=== PATIENT | female | born 1990 | race Caucasian/White ===

== ENCOUNTER 2020-02-23 06:11 | Inpatient (IN) ==
[2020-02-23] MEDS ORDERED: MEPERIDINE 50 MG/1 ML VIAL IV PRN (06:32)
[2020-02-23] MEDS ORDERED: BUTORPHANOL 2 MG/ML VIAL IV PRN (06:32)
[2020-02-23] MEDS ORDERED: LACTATED RINGERS 500 ML IV PRN (06:32)
[2020-02-23 07:11] LABS: Basophils # 0.1 10*3/uL (0.0-0.2); Basophils % 0.5 % (0.0-0.8); Eosinophils # 0.1 10*3/uL (0.0-0.87); Eosinophils % 0.5 % (0.00-10.9); Hematocrit 34.9 VOL% (35.7-47.0); Hemoglobin 10.6 GM/DL (12.0-16.0); Immature Granulocytes Absolute 0.09 #; Lymphocytes # 1.3 10*3/uL (1.4-4.0); Lymphocytes % 14.3 % (21.3-54.2); Mean Corpuscular HGB Conc 30.4 GM/DL (32-36); Mean Corpuscular Volume 78.3 FL (87-102); Mean Platelet Volume 11.4 FL (9.6-12.0); Neutrophils % 75.7 % (38.7-73.9); Platelet Count 237 T/CUMM (130-400); Red Blood Count 4.46 MC/CUMM (3.8-5.5); Red Cell Distribution Width 15.8 % (9.3-17.3); White Blood Count 9.4 T/CUMM (4-12)
[2020-02-23] MEDS: LACTATED RINGERS 1,000 ML IV SCH ×3 (07:23→21:28)
[2020-02-23] MEDS ORDERED: ACETAMINOPHEN 500 MG TABLET PO PRN (12:28)
[2020-02-23] MEDS: ONDANSETRON 4 MG/2 ML VIAL IV PRN (17:09)
[2020-02-23] MEDS ORDERED: NALOXONE 0.4 MG/ML VIAL IV PRN (18:33)
[2020-02-23] MEDS ORDERED: CITRIC ACID/SODIUM CITRATE 30 ML UDCUP PO ONE (18:33)
[2020-02-23] MEDS ORDERED: hydrOXYzine HCL 25 MG/1 ML VIAL IM PRN (18:33)
[2020-02-23] MEDS ORDERED: ONDANSETRON 4 MG/2 ML VIAL IV ONE (18:33)
[2020-02-23] MEDS ORDERED: FAMOTIDINE 20 MG/2 ML VIAL IV ONE (18:33)
[2020-02-23] MEDS ORDERED: PROMETHAZINE 25 MG/1 ML VIAL IM ONE (18:33)
[2020-02-23] MEDS ORDERED: ePHEDrine 50 MG/ML AMP IV PRN (18:33)
[2020-02-23] MEDS ORDERED: diphenhydrAMINE 50 MG/1 ML VIAL IV PRN ×2 (18:33)
[2020-02-23] MEDS: fentaNYL 2 MCG/ROPIV 0.2% EPID 100 ML EPIDURAL SCH ×2 (18:49→19:13)
[2020-02-23] MEDS ORDERED: OXYTOCIN/LR 20 UNIT/1,000 ML BAG IV ONE (21:29)
[2020-02-23] MEDS ORDERED: OXYTOCIN/LR 20 UNIT/1,000 ML BAG IV SCH (22:00)
[2020-02-24 00:55] LABS: Apearance,Urine CLEAR (Clear); Bilirubin,Urine Negative (Negative); Blood, Urine Negative (Negative); Glucose,Urine (UA) Negative (Negative); Ketones,Urine 5 mg/dL (Negative); Mucus,Urine Occasional /LPF (Occasional); Nitrite,Urine Negative (Negative); Protein,Urine Negative; RBC,Urine <1 /HPF (0-4); Urine Color Straw (Yellow); Urine Specific Gravity 1.011 (1.001-1.035); Urine Urobilinogen < 2.0 EU/DL (0.2-1.0); WBC,Urine <1 /HPF (0-6)
[2020-02-24] MEDS ORDERED: miSOPROStoL 200 MCG TABLET ONE (03:34)
[2020-02-24] MEDS ORDERED: METHYLERGONOVINE 0.2 MG/1 ML AMP ONE ×2 (03:35→09:42)
[2020-02-24] MEDS ORDERED: CARBOPROST TROMETHAMINE 250 MCG/ML AMP IM ONE ×2 (03:35→13:30)
[2020-02-24] MEDS ORDERED: ceFAZolin 3,000 MG in SYRINGE 1 EACH IV ONE (08:56)
[2020-02-24] MEDS ORDERED: ceFAZolin 1,000 MG VIAL ONE (08:59)
[2020-02-24] MEDS ORDERED: ACETAMINOPHEN 325 MG TABLET PO PRN (10:09)
[2020-02-24] MEDS ORDERED: ONDANSETRON 4 MG/2 ML VIAL IV PRN (10:09)
[2020-02-24] MEDS ORDERED: OXYTOCIN/LR 20 UNIT/1,000 ML BAG IV ONE (10:09)
[2020-02-24] MEDS ORDERED: RHO(D) IMMUNE GLOBULIN 300 MCG SYRINGE IM ONE (10:09)
[2020-02-24] MEDS ORDERED: ceFAZolin 1,000 MG in SYRINGE 1 EACH IV SCH (10:30)
[2020-02-24] MEDS ORDERED: LACTATED RINGERS 1,000 ML IV SCH (10:30)
[2020-02-24] MEDS: IBUPROFEN 800 MG TABLET PO PRN ×2 (11:00→20:20)
[2020-02-24] MEDS ORDERED: MORPHINE 10 MG/10 ML VIAL ONE (11:36)
[2020-02-24] MEDS ORDERED: ONDANSETRON 4 MG/2 ML VIAL ONE ×2 (11:36)
[2020-02-24] MEDS ORDERED: LIDOCAINE MPF 2% /EPI 20 ML VIAL ONE (11:36)
[2020-02-24] MEDS ORDERED: propofoL 200 MG/20 ML VIAL IV ONE (11:36)
[2020-02-24] MEDS ORDERED: PHENYLEPHRINE 1 MG/10 ML SYRINGE IV ONE (11:37)
[2020-02-24] MEDS ORDERED: LACTATED RINGERS 1,000 ML IV ONE (11:37)
[2020-02-24] MEDS ORDERED: METHYLERGONOVINE 0.2 MG/1 ML AMP IM ONE (13:14)
[2020-02-24] MEDS: LACTATED RINGERS 1,000 ML IV SCH ×2 (13:34→21:55)
[2020-02-24] MEDS: ONDANSETRON 4 MG/2 ML VIAL IV PRN (13:50)
[2020-02-24] MEDS ORDERED: SODIUM CHLORIDE 0.9% 50 ML IV ONE (17:10)
[2020-02-24] MEDS: ceFAZolin 1,000 MG in SYRINGE 1 EACH IV SCH (17:16)
[2020-02-24 17:17] LABS: Basophils % 0.2 % (0.0-0.8); Hematocrit 29.2 VOL% (35.7-47.0); Hemoglobin 8.8 GM/DL (12.0-16.0); Immature Granulocytes % 0.7 %; Immature Granulocytes Absolute 0.11 #; Lymphocytes # 0.7 10*3/uL (1.4-4.0); Lymphocytes % 4.5 % (21.3-54.2); Mean Corpuscular HGB Conc 30.1 GM/DL (32-36); Mean Corpuscular Volume 78.9 FL (87-102); Monocytes % 6.3 % (1.7-12.7); Neutrophils % 88.3 % (38.7-73.9); Platelet Count 195 T/CUMM (130-400); White Blood Count 15.7 T/CUMM (4-12)
[2020-02-24 18:01] LABS: Band Neutrophils 2 % (0-10); Hypochromasia Slight; Lymphocytes 4 % (20-55); Microcytosis 1+; Platelet Estimate Normal; Segmented Neutrophils 93 % (50-85); Total Cells Counted 100
[2020-02-24] MEDS: DOCUSATE SODIUM 100 MG CAPSULE PO SCH (20:20)
[2020-02-25] MEDS: ceFAZolin 1,000 MG in SYRINGE 1 EACH IV SCH (01:11)
[2020-02-25] MEDS: IBUPROFEN 800 MG TABLET PO PRN ×2 (04:39→15:40)
[2020-02-25 04:59] LABS: Basophils % 0.3 % (0.0-0.8); Eosinophils # 0.1 10*3/uL (0.0-0.87); Eosinophils % 0.6 % (0.00-10.9); Hematocrit 24.3 VOL% (35.7-47.0); Hemoglobin 7.4 GM/DL (12.0-16.0); Immature Granulocytes % 0.8 %; Immature Granulocytes Absolute 0.08 #; Lymphocytes # 1.1 10*3/uL (1.4-4.0); Lymphocytes % 10.7 % (21.3-54.2); Mean Corpuscular HGB Conc 30.5 GM/DL (32-36); Mean Corpuscular Volume 79.4 FL (87-102); Mean Platelet Volume 10.7 FL (9.6-12.0); Monocytes % 7.8 % (1.7-12.7); Neutrophils % 79.8 % (38.7-73.9); Platelet Count 161 T/CUMM (130-400); Red Blood Count 3.06 MC/CUMM (3.8-5.5); Red Cell Distribution Width 15.9 % (9.3-17.3); White Blood Count 10.2 T/CUMM (4-12)
[2020-02-25] MEDS: MULTIVITAMIN (PRENATAL) TABLET PO SCH (09:23)
[2020-02-25] MEDS: DOCUSATE SODIUM 100 MG CAPSULE PO SCH ×3 (09:23→20:07)
[2020-02-25] MEDS: PANTOPRAZOLE 40 MG TABLET PO SCH (11:00)
[2020-02-25] MEDS: oxyCODONE/ACETAMINOPHEN 5-325 MG TABLET PO PRN (16:45)
[2020-02-25] MEDS ORDERED: BISACODYL 10 MG SUPP RECTAL PRN (19:45)
[2020-02-25] MEDS: MAGNESIUM HYDROXIDE SUSP 30 ML UDCUP PO PRN (19:53)
[2020-02-25] MEDS: SIMETHICONE CHEW 80 MG TABLET PO PRN (19:53)
[2020-02-26] MEDS: FERROUS SULFATE 325 MG TABLET PO SCH ×4 (00:11→21:40)
[2020-02-26] MEDS: oxyCODONE/ACETAMINOPHEN 5-325 MG TABLET PO PRN ×4 (00:30→23:28)
[2020-02-26] MEDS: IBUPROFEN 800 MG TABLET PO PRN ×3 (03:01→23:29)
[2020-02-26] MEDS ORDERED: MAGNESIUM CITRATE 300 ML BOTTLE PO ONE (06:18)
[2020-02-26 07:05] LABS: Basophils % 0.3 % (0.0-0.8); Eosinophils # 0.1 10*3/uL (0.0-0.87); Eosinophils % 0.7 % (0.00-10.9); Hematocrit 23.7 VOL% (35.7-47.0); Hemoglobin 7.1 GM/DL (12.0-16.0); Immature Granulocytes % 2.5 %; Immature Granulocytes Absolute 0.29 #; Lymphocytes # 1.6 10*3/uL (1.4-4.0); Lymphocytes % 13.4 % (21.3-54.2); Mean Corpuscular Volume 79.5 FL (87-102); Mean Platelet Volume 11.2 FL (9.6-12.0); Monocytes % 7.8 % (1.7-12.7); Neutrophils % 75.3 % (38.7-73.9); Platelet Count 205 T/CUMM (130-400); Red Blood Count 2.98 MC/CUMM (3.8-5.5); Red Cell Distribution Width 16.3 % (9.3-17.3); White Blood Count 11.5 T/CUMM (4-12)
[2020-02-26] MEDS: PANTOPRAZOLE 40 MG TABLET PO SCH (10:27)
[2020-02-26] MEDS: DOCUSATE SODIUM 100 MG CAPSULE PO SCH ×3 (10:28→21:40)
[2020-02-26] MEDS: MULTIVITAMIN (PRENATAL) TABLET PO SCH (10:28)
[2020-02-27] MEDS: IBUPROFEN 800 MG TABLET PO PRN (09:30)
[2020-02-27] MEDS: PANTOPRAZOLE 40 MG TABLET PO SCH (09:32)
[2020-02-27] MEDS: DOCUSATE SODIUM 100 MG CAPSULE PO SCH (09:32)
[2020-02-27] MEDS: FERROUS SULFATE 325 MG TABLET PO SCH (09:32)
[2020-02-27] MEDS: MULTIVITAMIN (PRENATAL) TABLET PO SCH (09:32)
[2020-02-27] MEDS: MAGNESIUM HYDROXIDE SUSP 30 ML UDCUP PO PRN (09:33)
[2020-02-27] MEDS: SIMETHICONE CHEW 80 MG TABLET PO PRN (09:33)
[2020-02-27 09:47] VITALS: BP 123/76
[2020-02-27] MEDS: oxyCODONE/ACETAMINOPHEN 5-325 MG TABLET PO PRN (12:33)
== END 2020-02-27 13:20 | disposition home or self-care (01) | DRG 788 ==
LOC: N.LDOUT 06:11 → N.LD 06:15 → N.OB 02-24 13:31
PROVIDERS: ADMIT Obstetrics & Gynecology; ATTEND Obstetrics & Gynecology
PROC: LDCSECT (ICD-10-PCS; 2020-02-24 08:50)

== ENCOUNTER 2021-09-14 05:36 | Inpatient (IN) ==
[2021-09-14] MEDS ORDERED: FAMOTIDINE 20 MG/2 ML VIAL IV ONE (05:42)
[2021-09-14] MEDS ORDERED: CITRIC ACID/SODIUM CITRATE 30 ML UDCUP PO ONE (05:42)
[2021-09-14] MEDS ORDERED: ceFAZolin 3,000 MG in SYRINGE 1 EACH IV ONE (05:42)
[2021-09-14 06:15] LABS: Basophils # 0.1 10*3/uL (0.0-0.2); Basophils % 0.6 % (0.0-0.8); Eosinophils # 0.1 10*3/uL (0.0-0.87); Eosinophils % 0.8 % (0.00-10.9); Hematocrit 40.1 VOL% (35.7-47.0); Hemoglobin 12.4 GM/DL (12.0-16.0); Immature Granulocytes % 0.6 %; Immature Granulocytes Absolute 0.05 #; Lymphocytes # 1.5 10*3/uL (1.4-4.0); Lymphocytes % 17.5 % (21.3-54.2); Mean Corpuscular HGB Conc 30.9 GM/DL (32-36); Mean Platelet Volume 10.4 FL (9.6-12.0); Monocytes % 8.3 % (1.7-12.7); Neutrophils % 72.2 % (38.7-73.9); Platelet Count 211 T/CUMM (130-400); Red Blood Count 4.72 MC/CUMM (3.8-5.5); Red Cell Distribution Width 15.3 % (9.3-17.3); White Blood Count 8.4 T/CUMM (4-12)
[2021-09-14] MEDS: LACTATED RINGERS 1,000 ML IV SCH ×2 (06:19→14:49)
[2021-09-14] MEDS ORDERED: OXYTOCIN/LR 20 UNIT/1,000 ML BAG IV ONE ×2 (06:54→08:54)
[2021-09-14] MEDS ORDERED: ONDANSETRON 4 MG/2 ML VIAL ONE ×2 (07:03→07:49)
[2021-09-14] MEDS ORDERED: DEXAMETHASONE 4 MG/1 ML VIAL ONE (07:03)
[2021-09-14] MEDS ORDERED: KETOROLAC 30 MG/1 ML VIAL ONE (07:03)
[2021-09-14] MEDS ORDERED: ACETAMINOPHEN INJ 1,000 MG/100 ML VIAL IV ONE (07:03)
[2021-09-14] MEDS ORDERED: BUPIVACAINE SPINAL 0.75% 2 ML AMP SPINAL ONE (07:03)
[2021-09-14] MEDS ORDERED: miSOPROStoL 200 MCG TABLET ONE (07:10)
[2021-09-14] MEDS ORDERED: TRANEXAMIC ACID 1,000 MG/10 ML VIAL ONE (07:10)
[2021-09-14] MEDS ORDERED: SODIUM CHLORIDE 0.9% 0 ML IV ONE (07:10)
[2021-09-14] MEDS ORDERED: CARBOPROST TROMETHAMINE 250 MCG/ML AMP IM ONE (07:11)
[2021-09-14] MEDS ORDERED: METHYLERGONOVINE 0.2 MG/1 ML AMP ONE (07:11)
[2021-09-14] MEDS ORDERED: PHENYLEPHRINE 1 MG/10 ML SYRINGE IV ONE (07:34)
[2021-09-14] MEDS ORDERED: ePHEDrine 50 MG/ML VIAL ONE (07:34)
[2021-09-14 08:10] LABS: Bilirubin,Urine Negative (Negative); Blood, Urine Moderate mg/dL (Negative); Glucose,Urine (UA) Negative (Negative); Ketones,Urine Negative (Negative); Mucus,Urine Occasional /LPF (Occasional); Nitrite,Urine Negative (Negative); Protein,Urine Negative; RBC,Urine <1 /HPF (0-4); Urine Appearance CLEAR (Clear); Urine Color Straw (Yellow); Urine Specific Gravity 1.012 (1.001-1.035); Urine Urobilinogen < 2.0 EU/DL (0.2-1.0)
[2021-09-14 08:19] LABS: Cord Arterial Blood HCO3 20.2 MMOL/L
[2021-09-14 08:23] LABS: Cord Venous Blood HCO3 21.2 MMOL/L
[2021-09-14] MEDS ORDERED: LACTATED RINGERS 1,000 ML IV ONE (08:44)
[2021-09-14] MEDS ORDERED: IBUPROFEN 800 MG TABLET PO PRN (08:54)
[2021-09-14] MEDS ORDERED: ONDANSETRON 4 MG/2 ML VIAL IV PRN (08:54)
[2021-09-14] MEDS ORDERED: SIMETHICONE CHEW 80 MG TABLET PO PRN (08:54)
[2021-09-14] MEDS ORDERED: RHO(D) IMMUNE GLOBULIN 300 MCG SYRINGE IM ONE (08:54)
[2021-09-14] MEDS ORDERED: ACETAMINOPHEN 325 MG TABLET PO PRN (08:54)
[2021-09-14] MEDS ORDERED: LACTATED RINGERS 1,000 ML IV SCH (09:00)
[2021-09-14] MEDS: KETOROLAC 30 MG/1 ML VIAL IV SCH ×2 (13:38→20:44)
[2021-09-14] MEDS: ACETAMINOPHEN 500 MG TABLET PO SCH ×2 (13:39→20:42)
[2021-09-14] MEDS: MULTIVITAMIN (PRENATAL) TABLET PO SCH (14:28)
[2021-09-14] MEDS: DOCUSATE SODIUM 100 MG CAPSULE PO SCH ×2 (14:51→20:41)
[2021-09-14 15:36] LABS: Basophils % 0.1 % (0.0-0.8); Hematocrit 34.9 VOL% (35.7-47.0); Hemoglobin 11.1 GM/DL (12.0-16.0); Immature Granulocytes % 0.5 %; Immature Granulocytes Absolute 0.07 #; Lymphocytes # 0.8 10*3/uL (1.4-4.0); Lymphocytes % 5.5 % (21.3-54.2); Mean Corpuscular HGB Conc 31.8 GM/DL (32-36); Mean Corpuscular Volume 83.5 FL (87-102); Mean Platelet Volume 10.1 FL (9.6-12.0); Monocytes % 4.3 % (1.7-12.7); Neutrophils % 89.6 % (38.7-73.9); Platelet Count 203 T/CUMM (130-400); Red Blood Count 4.18 MC/CUMM (3.8-5.5); Red Cell Distribution Width 15.3 % (9.3-17.3)
[2021-09-14 16:03] LABS: Albumin 2.3 G/DL (3.4-5.0); Bilirubin,Total 0.4 MG/DL (0.20-1.00); Calcium 8.5 MG/DL (8.5-10.1); Osmolality,Calculated 267.1 MOS/KG (273-304); Total Protein 5.8 G/DL (6.4-8.2)
[2021-09-15] MEDS: KETOROLAC 30 MG/1 ML VIAL IV SCH (01:33)
[2021-09-15] MEDS: ACETAMINOPHEN 500 MG TABLET PO SCH (01:54)
[2021-09-15 04:59] LABS: Basophils % 0.3 % (0.0-0.8); Eosinophils % 0.4 % (0.00-10.9); Hematocrit 29.8 VOL% (35.7-47.0); Hemoglobin 9.6 GM/DL (12.0-16.0); Immature Granulocytes % 0.5 %; Immature Granulocytes Absolute 0.05 #; Lymphocytes # 1.6 10*3/uL (1.4-4.0); Lymphocytes % 16.4 % (21.3-54.2); Mean Corpuscular HGB Conc 32.2 GM/DL (32-36); Mean Corpuscular Volume 83.9 FL (87-102); Mean Platelet Volume 10.5 FL (9.6-12.0); Monocytes % 6.8 % (1.7-12.7); Neutrophils % 75.6 % (38.7-73.9); Platelet Count 174 T/CUMM (130-400); Red Blood Count 3.55 MC/CUMM (3.8-5.5); Red Cell Distribution Width 15.4 % (9.3-17.3); White Blood Count 9.7 T/CUMM (4-12)
[2021-09-15] MEDS: oxyCODONE/ACETAMINOPHEN 5-325 MG TABLET PO PRN (05:51)
[2021-09-15] MEDS: DOCUSATE SODIUM 100 MG CAPSULE PO SCH ×2 (08:14→20:31)
[2021-09-15] MEDS: MULTIVITAMIN (PRENATAL) TABLET PO SCH (08:14)
[2021-09-15] MEDS: MAGNESIUM HYDROXIDE SUSP 30 ML UDCUP PO PRN (08:14)
[2021-09-15] MEDS ORDERED: oxyCODONE/ACETAMINOPHEN 5-325 MG TABLET PO PRN (15:07)
[2021-09-15] MEDS: IBUPROFEN 800 MG TABLET PO PRN (20:33)
[2021-09-16] MEDS: oxyCODONE/ACETAMINOPHEN 5-325 MG TABLET PO PRN ×2 (05:43→11:38)
[2021-09-16 09:31] VITALS: BP 140/74
[2021-09-16] MEDS: DOCUSATE SODIUM 100 MG CAPSULE PO SCH (10:14)
[2021-09-16] MEDS: MULTIVITAMIN (PRENATAL) TABLET PO SCH (10:15)
[2021-09-16] MEDS: IBUPROFEN 800 MG TABLET PO PRN (11:37)
[2021-09-16] MEDS: MAGNESIUM HYDROXIDE SUSP 30 ML UDCUP PO PRN (12:00)
== END 2021-09-16 13:05 | disposition home or self-care (01) | DRG 785 ==
LOC: N.LD 05:36 → N.OB 13:21
PROVIDERS: ADMIT Obstetrics & Gynecology; ATTEND Obstetrics & Gynecology